=== PATIENT | female | born 1950 | race Caucasian/White ===

== ENCOUNTER → 2018-09-03 | Outpatient (CLI) | payer BC ==
--- NOTE | 2018-09-04 08:33 | RAD ---
EXAM DESCRIPTION: Knee,Left Complete CLINICAL HISTORY: 68 years, Female, BILATERAL KNEE PAIN COMPARISON: None TECHNIQUE: Three views of the left knee FINDINGS: Severe degenerative changes of the left knee with sclerosis and [id number] appearance of the medial joint compartment with mild varus deformity is present. No fracture or dislocation is seen. Moderate joint effusion is present. Hypertrophic marginal osteophytes including the patellofemoral groove is evident. IMPRESSION: 1. Advanced degenerative changes left knee. Electronically signed by: Keanu Rivas MD 09/04/2018 8:32 AM CDT
--- NOTE | 2018-09-04 08:35 | RAD ---
EXAM DESCRIPTION: Knee,Right Complete CLINICAL HISTORY: 68 years, Female, BILATERAL KNEE PAIN COMPARISON: None TECHNIQUE: Three views of the right knee FINDINGS: Three views of the right knee demonstrate advanced degenerative changes with joint space narrowing and subchondral sclerosis medial joint compartment with mild varus deformity. Modest joint effusion is present. Hypertrophic marginal osteophytes at the articular margins including the patellofemoral groove is noted. IMPRESSION: 1. Advanced degenerative changes right knee. Electronically signed by: Keanu Rivas MD 09/04/2018 8:33 AM CDT
== END ==
LOC: RAD 15:19
PROVIDERS: ATTEND Nurse Practitioner Family
DX: M25.561 Pain in right knee (principal); M25.562 Pain in left knee